=== PATIENT | female | born 1980 | race Caucasian/White ===

== ENCOUNTER 2021-06-07 12:23 | Emergency (ER) | payer MEDICAID ==
[~2021-06-07] VITALS: Ht 144.8 cm; Wt 63.0 kg
[2021-06-07 12:35] VITALS: BP 127/62
[2021-06-07] MEDS ORDERED: FAMOTIDINE 20 MG TAB PO ONE (13:25)
[2021-06-07 14:18] LABS: BASOPHILS % (AUTO) 0.5 % (0.0-2.0); EOSINOPHILS % (AUTO) 0.5 % (0.0-4.0); HEMATOCRIT 26.3 % (36-48); HEMOGLOBIN 7.9 g/dL (12.0-16.0); LYMPHOCYTES % (AUTO) 21.2 % (20.5-51.1); MEAN CORPUSCULAR HEMOGLOBIN 17 pg (27-31); MEAN CORPUSCULAR HGB CONC 30 g/dL (33-37); MEAN CORPUSCULAR VOLUME 56.4 fL (80-94); MONOCYTES # (AUTO) 0.6 K/uL (0.8-1.0); MONOCYTES % (AUTO) 6.7 % (1.7-9.3); NEUTROPHILS # (AUTO) 6.8 K/uL (1.8-7.7); NEUTROPHILS % (AUTO) 71.1 % (42.2-75.2); PLATELET COUNT (AUTO) 528 K/uL (140-450); RED BLOOD CELL COUNT(AUTO) 4.66 MIL/uL (4.20-5.40); RED CELL DISTRIBUTION WIDTH 19.7 % (11.6-13.7); WHITE BLOOD COUNT (AUTO) 9.6 K/uL (4.8-10.8)
--- NOTE | 2021-06-07 14:20 | NUR ---
PT C/O EPIGASTRIC PAIN X2 MONTHS INTERMITTENTLY, WORSE LAST 2 DAYS WITH BLOATING. IV INSERTED TO LEFT AC #20GUAGE BLOOD DRAWN AND SENT TO LAB.
[2021-06-07 14:33] LABS: ALBUMIN 3.9 g/dL (3.4-5.0); ANION GAP 9.9 (8-16); CARBON DIOXIDE 27.8 mmol/L (21-32); CREATININE 0.5 mg/dL (0.6-1.3); POTASSIUM 3.7 mmol/L (3.5-5.1); TOTAL BILIRUBIN 0.5 mg/dL (0.0-1.0)
[2021-06-07] MEDS ORDERED: OMEP40EC23 PO (14:38)
[2021-06-07] MEDS ORDERED: ACET-8386 PO (14:38)
[2021-06-07 14:50] VITALS: BP 111/65
--- NOTE | 2021-06-07 14:50 | NUR ---
Patient discharged with v/s stable. Written and verbal after care instructions given and explained. Patient verbalized understanding. Ambulatory with steady gait. All questions addressed prior to discharge. Advised to follow up with PMD.
== END 2021-06-07 14:50 | disposition home or self-care (01) ==
LOC: MED 12:23
DX: K80.20 Calculus of gallbladder without cholecystitis without obstruction (principal); K21.9 Gastro-esophageal reflux disease without esophagitis; Z86.2 Personal history of diseases of the blood and blood-forming organs and certain disorders involving the immune mechanism; Z98.51 Tubal ligation status
CPT/HCPCS: 36415; 76705; 80053; 81002; 81025; 83690; 85025; 99284; Q0092

== ENCOUNTER 2021-11-27 20:40 | Emergency (ER) | payer MEDICAID ==
[~2021-11-27] VITALS: Ht 154.9 cm; Wt 62.1 kg
[~2021-11-27 20:40] MED LIST: ACET-8386 PO; OMEP40EC23 PO
[2021-11-27 20:56] VITALS: BP 103/71
--- NOTE | 2021-11-27 21:00 | NUR ---
pt ambulatory to bed 11
--- NOTE | 2021-11-27 21:10 | NUR ---
41/F BIB SELF C/C SHARP 8/10 INTERMITTENT NAZARIO LOWER LEG PAIN XTODAY. PATIENT DENIES INJURY. NO REDNESS, WARMTH OBSERVED. PAIN EXACERBATES UPON AMBULATION. ROM INTACT. PATIENT ALSO REPORTS BREAST TENDERNESS X3DAYS. STATED THAT SOON SHE REMOVES BRA HER BREAST BEGIN TO HURT. PATIENT REPORTS TAKING NAPROXEN IN THE AM WITH NO RELIEF. LMP OCT 2021 PMHX ANEMIA NKA
[2021-11-27] MEDS ORDERED: KETOROLAC 60 MG/2 ML VIAL IM ONE (21:25)
[2021-11-27] MEDS ORDERED: DICYCLOMINE HCL LIQUID 20 MG, ALUMINUM HYD/MAG/SIMETHICONE 30 ML, LIDOCAINE VISCOUS 2% ... PO ONE ×3 (22:30)
--- NOTE | 2021-11-27 22:35 | NUR ---
WILLIS HASSAN AT BEDSIDE
[2021-11-27] MEDS ORDERED: DICYCLOMINE HCL LIQUID 10 MG/5 ML UDC ONE (22:38)
[2021-11-27] MEDS ORDERED: ALUMINUM HYD/MAG/SIMETHICONE 30 ML UDC ONE (22:38)
--- NOTE | 2021-11-27 22:40 | NUR ---
LAB AT BEDSIDE
--- NOTE | 2021-11-27 22:43 | NUR ---
PATIETN MEDICATED PER ORDERS. TOLERATED WELL
[2021-11-27 22:48] LABS: BASOPHILS % (AUTO) 0.4 % (0.0-2.0); EOSINOPHILS # (AUTO) 0.1 K/uL (0-0.4); EOSINOPHILS % (AUTO) 1.1 % (0.0-4.0); HEMATOCRIT 22.5 % (36-48); LYMPHOCYTES # (AUTO) 3.6 K/uL (2.5-16.5); LYMPHOCYTES % (AUTO) 33.9 % (20.5-51.1); MEAN CORPUSCULAR HEMOGLOBIN 16 pg (27-31); MEAN CORPUSCULAR HGB CONC 30 g/dL (33-37); MEAN CORPUSCULAR VOLUME 53.3 fL (80-94); MONOCYTES # (AUTO) 0.8 K/uL (0.8-1.0); MONOCYTES % (AUTO) 7.9 % (1.7-9.3); NEUTROPHILS % (AUTO) 56.7 % (42.2-75.2); PLATELET COUNT (AUTO) 441 K/uL (140-450); RED BLOOD CELL COUNT(AUTO) 4.23 MIL/uL (4.20-5.40); RED CELL DISTRIBUTION WIDTH 20.6 % (11.6-13.7); WHITE BLOOD COUNT (AUTO) 10.6 K/uL (4.8-10.8)
[2021-11-27 22:57] LABS: HEMOGLOBIN 6.7 g/dL (12.0-16.0)
--- NOTE | 2021-11-27 23:00 | NUR ---
ERMD AT BEDSIDE
[2021-11-27 23:11] LABS: ANION GAP 12.9 (8-16); CARBON DIOXIDE 25.1 mmol/L (21-32); CREATININE 0.5 mg/dL (0.6-1.3)
--- NOTE | 2021-11-27 23:32 | NUR ---
IV ESTABLISHED. 22G RIGHT AC.
--- NOTE | 2021-11-27 23:33 | NUR ---
REYNALDO RQ WATER.
--- NOTE | 2021-11-28 01:25 | NUR ---
BLOOD TRANSFUSION INITIATED. VSS. TOLERATED WELL.
[2021-11-28] MEDS ORDERED: MAG-27 PO (02:14)
--- NOTE | 2021-11-28 02:46 | NUR ---
PATIETN SITTING IN BED. RQ WATER.
--- NOTE | 2021-11-28 03:00 | NUR ---
BLOOD TRANSFUSION COMPLETE. VSS. PATIETN TOLERATED WELL. NO ADVERSE RXN OBSERVED.
--- NOTE | 2021-11-28 03:32 | NUR ---
IV removed, catheter intact and site benign. Applied folded 4x4 gauze and tape to stop bleeding.
--- NOTE | 2021-11-28 03:39 | NUR ---
Patient discharged with v/s stable. Written and verbal after care instructions given and explained. Patient alert, oriented and verbalized understanding of instructions. Ambulatory with steady gait. All questions addressed prior to discharge. ID band removed. Patient advised to follow up with PMD. Rx of MAG HYDROX/ALUMINUM HYD/SIMETH given. Patient educated on indication of medication including possible reaction and side effects. Opportunity to ask questions provided and answered.
[2021-11-28 03:40] VITALS: BP 105/65
== END 2021-11-28 03:39 | disposition home or self-care (01) ==
LOC: MED 20:40
DX: D64.9 Anemia, unspecified (principal); M79.605 Pain in left leg; M79.604 Pain in right leg; Z79.899 Other long term (current) drug therapy
CPT/HCPCS: 36415; 36430; 71045; 80048; 81002; 81025; 85025; 86886; 86900; 86901; 86920; 93005; 96372; 99285; J1885; P9016